=== PATIENT | male | born 1975 | race Caucasian/White ===

== ENCOUNTER 2018-07-24 11:22 | Outpatient (CLI) | payer BC | END 2018-07-24 11:23 | disposition home or self-care (01) | LOC: SC 11:22 | PROVIDERS: ATTEND Internal Medicine Pulmonary Disease | DX: G47.33 Obstructive sleep apnea (adult) (pediatric) (principal) | CPT/HCPCS: 99203; 99212 ==

== ENCOUNTER 2018-09-12 20:30 | Outpatient (CLI) | payer OTHER | END 2018-09-12 23:59 | disposition home or self-care (01) | LOC: SC 20:30 | PROVIDERS: ATTEND Internal Medicine Pulmonary Disease | DX: G47.33 Obstructive sleep apnea (adult) (pediatric) (principal) | CPT/HCPCS: 95806 ==

== ENCOUNTER 2018-11-07 13:43 | Outpatient (CLI) | payer OTHER ==
--- NOTE | 2018-11-07 14:29 | CONSULTATION NOTE ---
Information from patient questionnaire entered by Juliette To. I have reviewed and concur with the information entered by Juliette To. This document represents the service I personally performed and the decisions made by me, Michael Nicholas MD, [facility]. - History of Present Illness HPI: Mr. Hdz returned for follow up of the home sleep apnea test (HSAT) he had on 09/12/2018. The test showed very severe obstructive sleep apnea-hypopnea with an AHI of 77.2 and madeleine oxygen saturation of 77.6%. Baseline oxygen saturation was normal. The patient was informed of these findings. I explained to him the pathophysiology behind obstructive sleep apnea. We then spent quite a bit of time discussing different treatment options. For mild obstructive sleep apnea, surgery and oral appliance are alternatives to nasal CPAP therapy but in moderate or severe cases, nasal CPAP is the most effective and reliable treatment. Weight loss in an obese individual is strongly recommended. After some discussion, he opted to go with the nasal CPAP therapy. I explained to him how CPAP machine works and what to expect when using the machine. He is encouraged to use CPAP every night especially in the first 2 to 3 nights in order to get used to it. He should call his CPAP supplier or me to discuss any mechanical problem that may occur. If he snores or feels like he is not getting enough air from the machine, he should notify me and I will increase the pressure. Initial [place] Sleepiness Scale score: 6 Current [place] Sleepiness Scale score: 12 - Allergies/Medications Allergies and home medications reviewed: Yes - Review of Systems Review of systems same as previous: Yes - Impression 1. Obstructive Sleep Apnea-Hypopnea Syndrome, very severe, associated with moderate hypoxemia and sleep fragmentation. Obviously this is the cause of the patients symptoms of unrefreshed sleep, and excessive daytime sleepiness. As mentioned above, the patient will be started on autoCPAP set between 5 and 15 cmH2O. Depending on his response and compliance he may be brought back for an overnight CPAP titration study. - Plan 1. Prescription made for an autoCPAP, heated humidifier, and related supplies. 2. Attempt to lose weight and avoid alcohol consumption near bedtime. 3. The patient is again cautioned about driving until his sleepiness completely resolves on the CPAP therapy. 4. Return in six weeks for follow up. I will assess his response and compliance at that time. This visit is time-based and I spent 15 minutes with the patient and more than 50% of the time was spent counseling the patient.
== END 2018-11-07 13:44 | disposition home or self-care (01) ==
LOC: SC 13:43
PROVIDERS: ATTEND Internal Medicine Pulmonary Disease
DX: G47.33 Obstructive sleep apnea (adult) (pediatric) (principal)
CPT/HCPCS: 99212; 99213

== ENCOUNTER 2019-01-09 13:01 | Outpatient (CLI) | payer OTHER ==
--- NOTE | 2019-01-09 16:26 | SLEEP CARE CONSULTATION ---
Information from patient questionnaire entered by Juliette To. I have reviewed and concur with the information entered by Juliette To. This document represents the service I personally performed and the decisions made by me, Michael Nicholas MD, [facility]. History of Present Illness Previous diagnosis: Very Severe, Obstructive Sleep Apnea-Hypopnea Syndrome AHI: 77.2 Reason for CPAP/BiPAP follow up: first compliance Equipment type: CPAP Equipment obtained from: [employer] Prior sleep studies: Yes Year and Where: 2018 [facility] additional information: HPI: Mr. Hdz returned today for follow up of nasal CPAP therapy. He was diagnosed to have very severe obstructive sleep apnea-hypopnea syndrome. The patient has a [employer] DreamWear full face mask and another full face mask. He bought everything online because [employer] would not give him the DreamStation autoCPAP. He reports using the device nightly but not all through the night. The compliance report shows usage in 30 nights out of the past 30 nights, averaging 3.5 hours a night. Most of the time, the mask comes off during the night. He complained of no particular problem with the device such as soreness on the face, dry nose, epistaxis, nasal congestion or headache. He thinks that the pressure of 5 15 cmH2O is too high during the night. Despite the little usage, he notices improvement in his sleep quality, and that he wakes up feeling fresher in the morning and more awake/alert during the day. The average residual AHI is 5.5; and average time in large leak per day is 27.3 minutes. The 90th percentile pressure is 12.8 cmH2O. CPAP Compliance Data - Data Reviewed with Patient Average duration of nightly device use: 3h 30m Compliance rate %: 43.3 Current pressure setting (cmH2O): 5-15 Humidity settin Heated hose setting: off Subjective Patient concerns: reports: mask discomfort (sometimes), dry mouth, nose, throat (dry mouth sometimes) Initial [place] Sleepiness Scale score: 6 Current [place] Sleepiness Scale score: 5 Allergies and Home Medications Drug allergies reviewed: Yes Home medication list reviewed: Yes Review of Systems Review of systems same as previous: Yes Physical Exam Height: 6 ft 2.5 in Weight: 347 lb Body Mass Index: 43.9 BMI Classification: Obesity Class 3 Impression and Plan IMPRESSION: 1. Obstructive Sleep Apnea-Hypopnea Syndrome, very severe, with the patient trying to use the CPAP all night. He has [id number] compliance but significant clinical improvement. The current pressure appears slightly ineffective and uncomfortable. Overall, he is very satisfied with treatment and plans to continue with it long-term. To make the treatment more effective and comfortable, I will set it at 8 13 cmH2O. I showed him other full face masks that might stay on his face better. I recommend a manual CPAP/BiPAP titration study to find the best pressure setting and mask. However, he would like to wait until the beginning of the year to do this. PLAN: 1. Set the autoCPAP to 8 - 13 cmH2O. 2. Try to lose weight 3. Try other [employer]Med AirTouch F-20 full face mask and F30 full face mask. 4. Turn on the mask leak alarm so that he would wake up to put the mask back on. 5. Return for follow up in two months. I spent 100% of this 15 minute visit face to face with the patient with greater than 50% of this was spent time counseling the patient and coordination of care.
== END 2019-01-09 13:02 | disposition home or self-care (01) ==
LOC: SC 13:01
PROVIDERS: ATTEND Internal Medicine Pulmonary Disease
DX: G47.33 Obstructive sleep apnea (adult) (pediatric) (principal); E66.9 Obesity, unspecified; Z68.41 Body mass index [BMI] 40.0-44.9, adult
CPT/HCPCS: 99212; 99213

== ENCOUNTER 2020-01-21 13:32 | Emergency (ER) | payer OTHER ==
--- NOTE | 2020-01-21 14:32 | ED Physician Documentation ---
PD HPI BACK PAIN - Stated complaint Stated Complaint: BACK AND LEG PX - History obtained from History obtained from: Patient (see downtime charting) Results - Rads (name of study) L spine XR Radiology: EMP read contemporaneously (NAD) Departure - Departure Disposition: 01 Home, Self Care Clinical Impression: Abrasion, right lower leg, initial encounter Back contusion Qualifiers: Encounter type: initial encounter Laterality: right Qualified Code(s): S20.221A - Contusion of right back wall of thorax, initial encounter Fall Qualifiers: Encounter type: initial encounter Qualified Code(s): W19.XXXA - Unspecified fall, initial encounter Condition: Good
--- NOTE | 2020-01-22 09:28 | XRAY Report ---
PROCEDURE: Lumbar Spine 2 View INDICATIONS: BACK INJURY TECHNIQUE: 2 views of the lumbar spine were acquired. COMPARISON: None. FINDINGS: Bones: 5 [id number]-[id number] vertebrae are present. There is mild dextro convex curvature of the lumbar spine centered at the L3 vertebral body level. Osseous detail is mildly obscured by overlying soft ti ssues. No definite vertebral body compression fracture is seen. The transverse processes are poorly v isualized. Multilevel degenerative changes are seen with disc space narrowing and degenerative endpla te changes. Facet hypertrophy is noted at L4-5 and L5-S1. Soft tissues: Overlying bowel gas pattern is normal. No suspicious soft tissue calcifications. IMPRESSION: No acute osseous abnormality. Multilevel degenerative changes and mild dextroconvex curvature are see n in the lumbar spine. Findings were discussed with Dr. Cornelius of the Emergency Department by telephone on 01/21/2020 at terry roximately 3:10 PM. This dictation is being submitted the following day due to system downtime. Reviewed by: Robin Alberto MD on 01/22/2020 9:27 AM PDT Approved by: Robin Alberto MD on 01/22/2020 9:27 AM PDT Station ID: [id number]
== END 2020-01-21 15:13 | disposition home or self-care (01) ==
LOC: ED 13:32
DX: S70.311A Abrasion, right thigh, initial encounter (principal); S30.0XXA Contusion of lower back and pelvis, initial encounter; W17.89XA Other fall from one level to another, initial encounter
CPT/HCPCS: 1040M; 72100; 99281; 99283

== ENCOUNTER 2021-01-20 13:06 | Outpatient (CLI) | payer BC ==
[2021-01-20 14:00] VITALS: BP 146/88
--- NOTE | 2021-01-20 14:00 | SLEEP CARE CONSULTATION ---
Information from patient questionnaire entered by Juliette To. I have reviewed and concur with the information entered by Juliette To. This document represents the service I personally performed and the decisions made by , Norah Newman ARNP. History of Present Illness Service Date and Time: 01/20/2021 1306 Previous diagnosis: Very Severe, Obstructive Sleep Apnea-Hypopnea Syndrome AHI: 77.2 Reason for follow up: annual Equipment type: CPAP Equipment obtained from: Other (online purchase) Mask style: Full face Mask brand: Respironics Backup mask available: Yes (old mask) Prior sleep studies: Yes Year and Where: 09/2018 [facility] Type of Sleep Study: Home sleep study HPI additional information: DARIN ANAYA was diagnosed to have very severe, AHI 77.2, obstructive sleep apnea-hypopnea syndrome and returned today for CPAP therapy annual follow-up. CPAP Compliance Data - Data Reviewed with Patient Current pressure setting (cmH2O): 5-15 Subjective Missed days of use due to: reports: other (not using a device since September recall) Patient concerns: reports: mask discomfort (taking mask off during the night), other (Device recall). denies: aerophagia, air blowing in eyes, mask leak noise, condensation in mask/hose, nasal congestion, dry mouth, nose, throat, epistaxis Observed to snore while using device: No Current pressure setting perceived as: comfortable On therapy, patient: reports: sleeping better (2/10 days of use), more rested overall. denies: drowsiness while driving Initial [place] Sleepiness Scale score: 6 (in 2019) Current [place] Sleepiness Scale score: 7 Allergies and Home Medications Home medication list reviewed: Yes (no changes) Review of Systems Review of systems same as previous: Yes (no changes) Physical Exam Blood Pressure: 146/88 (right arm) Cuff size: long Heart Rate: 72 O2 Saturation: 97 Height: 6 ft 3 in Weight: 390 lb Body Mass Index: 48.7 BMI Classification: Morbidly Obese Neck circumference: 19 (inches) Heart: regular rate and rhythm Lungs: clear bilaterally Impression and Plan 1. Obstructive Sleep Apnea-Hypopnea Syndrome, very severe. Patient has not been using his machine due to the recall on his Dreamstation. Patient has already registered their device for the recall. Patient denies any black particles seen in machine or hoses, any unusual odors coming from device. Patient has not experienced any physical symptoms such as upper airway irritation, headache, skin or eye irritation, asthma, nausea/vomiting, difficulty breathing or chest pain. Patient informed that they may use an inline CPAP filter that they can obtain online to reduce chance of any particles being inhaled or ingested. We discussed thoroughly the health risks of not using the CPAP versus continuing use with the filter in place. If patient is not able to sleep due to waking up choking, gasping for air or other respiratory distress that they may decide to continue using it until it is either replaced or repaired. Patient would like a prescription for a new device that he plans on paying for with his [employer] card. He does not usually deal with a [employer] company. I will make up a prescription and patient encouraged to follow up after obtaining new device as needed. Patient voiced understanding and agreement with plan. Patient was encouraged to lose weight for their overall health and to reduce apneas. Adrian ruiz's apnea severity and rationale for treatment to reduce apnea, improve sleep quality and reduce cardiovascular and cerebrovascular events was reviewed. I also reviewed the benefit of consistent device use of CPAP for arrhythmia, depression and anxiety. * Continue auto CPAP pressure at 5-15 cmH2O * Replacement device for recalled device * Notify me if snoring with mask or feeling that the pressure is too much or too little * Attempt to lose weight * Call this office if any problems using CPAP * Return for follow up after obtaining new device, or sooner if concerns arise Counseling Topics: Spare mask, Weight loss health impact Visit Type: In Office Time Spent with Patient (minutes): 27 Provider Statement: I spent 100% of the Face to Face Visit with the patient with greater than 50% spent counseling the patient and coordination of care.
== END 2021-01-20 13:07 | disposition home or self-care (01) ==
LOC: SC 13:06
PROVIDERS: ATTEND Nurse Practitioner Family
DX: G47.33 Obstructive sleep apnea (adult) (pediatric) (principal); E66.01 Morbid (severe) obesity due to excess calories; Z68.42 Body mass index [BMI] 45.0-49.9, adult
CPT/HCPCS: 99212; 99213